=== PATIENT | male | born 1965 | race Caucasian/White ===

== ENCOUNTER 2024-05-21 02:12 | Inpatient (IN) ==
[2024-05-21 02:55] LABS: ABS Basophils 0.1 10^3/uL (0.0-0.1); ABS Lymphocytes 1.6 10^3/uL (1.0-4.8); ABS Monocytes 0.7 10^3/uL (0.0-1.1); Eosinophil % 0.4 %; Hematocrit 41.2 % (38-53); Hemoglobin 14.2 g/dL (13.2-16.3); Lymphocyte % 15.6 %; Mean Corpuscular Hemoglobin 30.3 pg (27-33); Mean Corpuscular Hgb Conc 34.5 g/dL (31-36); Mean Corpuscular Volume 87.8 fL (80-97); Mean Platelet Volume 8.6 fL (7.5-11.2); Platelet Count 252 10^3/uL (150-450); Red Blood Count 4.69 10^6/uL (4.06-5.63); Red Cell Distribution Width 14.5 % (12-17); White Blood Count 10.4 10^3/uL (3.6-10.2)
[2024-05-21 03:04] LABS: INR 1.04 (0.85-1.14)
[2024-05-21 03:51] LABS: Albumin 4.4 g/dL (3.5-5.7); Albumin/Globulin Ratio 1.5 (1-3); Calcium 9.6 mg/dL (8.6-10.3); Creatinine, Serum 0.92 mg/dL (0.67-1.17); Globulin 2.9 g/dL (2-4); Potassium 4.5 mmol/L (3.5-5.0); Total Bilirubin 0.3 mg/dL (0.2-1.0); Total Protein 7.3 g/dL (6.4-8.9); eGFR CKD-EPI 95.2 (>60)
[2024-05-21 04:30] LABS: High Sensitivity Troponin 1 Hr 3173 pg/mL (<20)
[2024-05-21] MEDS: Heparin DRIP 25,000 UNITS BAG 25,000 UNITS/250 ML BAG IV SCH (04:32)
[2024-05-21 06:06] LABS: ABS Basophils 0.1 10^3/uL (0.0-0.1); ABS Lymphocytes 1.9 10^3/uL (1.0-4.8); ABS Monocytes 0.9 10^3/uL (0.0-1.1); ABS Neutrophils 6.3 10^3/uL (1.5-7.6); Eosinophil % 0.3 %; Hematocrit 40.5 % (38-53); Lymphocyte % 20.7 %; Mean Corpuscular Hemoglobin 30.4 pg (27-33); Mean Corpuscular Hgb Conc 34.7 g/dL (31-36); Mean Corpuscular Volume 87.8 fL (80-97); Mean Platelet Volume 8.6 fL (7.5-11.2); Platelet Count 241 10^3/uL (150-450); Red Blood Count 4.62 10^6/uL (4.06-5.63); Red Cell Distribution Width 14.4 % (12-17); White Blood Count 9.2 10^3/uL (3.6-10.2)
[2024-05-21 08:57] LABS: High Sensitivity Troponin 1 Hr 5444 pg/mL (<20)
[2024-05-21] MEDS: Sulfur Hexaflouride MICROSPHR 25 MG VIAL IV PRN (09:20)
[2024-05-21] MEDS: NS 0.9% 1000 ml BAG 1,000 ML IV SCH (09:55)
[2024-05-21] MEDS: Heparin 5000 UNITS/ML 1 mL VIAL IV SCH (10:24)
[2024-05-21 15:16] LABS: High Sensitivity Troponin 1 Hr 3855 pg/mL (<20)
[2024-05-21] MEDS ORDERED: VERAPAMIL 2.5 MG/ML 2 ML VIAL ** 5 mg/2 ml ONE (15:57)
[2024-05-21] MEDS ORDERED: Heparin 1,000 UNIT/ML 10 ml (10,000 UNITS) CATHLAB/DIALYSIS ONE (15:57)
[2024-05-21] MEDS ORDERED: nitroGLYCERIN DRIP 50,000 MCG/250 ML BTL ONE (15:58)
[2024-05-21] MEDS ORDERED: Iohexol 350 (CONTRAST) 200 ML MDV IV ONE (15:58)
[2024-05-21] MEDS ORDERED: Lidocaine 1% VIAL 10 MG/ML 30 ML VIAL ONE (15:58)
[2024-05-21] MEDS ORDERED: Heparin 2 UNITS/ML 1000 mls 2,000 ML IV ONE (15:58)
[2024-05-21] MEDS ORDERED: fentaNYL 100 mcg/2 ml 50 MCG/ML VIAL ONE (16:15)
[2024-05-21] MEDS ORDERED: Midazolam 5 mg/5 ml VIAL 1 mg/ml 5 ml VIAL (5 mg) ONE (16:15)
[2024-05-21 18:21] LABS: POC SO2 96 %
[2024-05-21 18:21] LABS: POC SO2 68 %
[2024-05-22 06:56] LABS: ABS Eosinophils 0.1 10^3/uL (0.0-0.5); ABS Lymphocytes 2.1 10^3/uL (1.0-4.8); ABS Monocytes 1.1 10^3/uL (0.0-1.1); ABS Neutrophils 5.9 10^3/uL (1.5-7.6); Eosinophil % 1.4 %; Hematocrit 39.7 % (38-53); Hemoglobin 13.8 g/dL (13.2-16.3); Lymphocyte % 22.6 %; Mean Corpuscular Hemoglobin 30.4 pg (27-33); Mean Corpuscular Hgb Conc 34.7 g/dL (31-36); Mean Corpuscular Volume 87.7 fL (80-97); Mean Platelet Volume 8.8 fL (7.5-11.2); Platelet Count 228 10^3/uL (150-450); Red Blood Count 4.53 10^6/uL (4.06-5.63); Red Cell Distribution Width 14.7 % (12-17); White Blood Count 9.2 10^3/uL (3.6-10.2)
[2024-05-22 07:42] LABS: Creatinine, Serum 0.98 mg/dL (0.67-1.17); Magnesium 2.2 mg/dL (1.9-2.7); Potassium 4.4 mmol/L (3.5-5.0); eGFR CKD-EPI 88.3 (>60)
[2024-05-22 07:56] LABS: TSH Ultra Thyroid Stim Horm 10.46 mcIU/mL (0.34-5.60)
[2024-05-22 09:33] LABS: Free T4 0.64 ng/dL (0.61-1.12)
[2024-05-22 10:08] VITALS: BP 128/88
[2024-05-23 07:33] LABS: POC SO2 69 %
[2024-05-23] MEDS ORDERED: COWS Protocol Daily Order Reminder FOLLOW UP SCH (14:00)
== END 2024-05-22 14:00 | disposition short-term general hospital (02) | DRG 282 ==
LOC: ED 02:12 → SUATTDRO 03:31 → EDHOLD 03:31 → MEDTELE 11:11
PROVIDERS: ADMIT Hospitalist; ATTEND Internal Medicine